=== PATIENT | female | born 1975 | race African-American/Black ===

== ENCOUNTER 2017-12-24 08:52 | Outpatient (RCR) | payer OTHER ==
[~2017-12-24 08:52] MED LIST: AUGMENTIN 875 M1 TAB PO; LORTAB 5/500 501 TAB PO; MOTRIN800 MG PO; NAPROSYN500 MG PO; NO HOME MEDICATIONS; ULTRAM50 MG PO; [UNRECOGNIZED DRUG - CODE] PO
[2018-02-22] MEDS ORDERED: CEPHALEXIN500 M1 PO (22:30)
[2018-02-22] MEDS ORDERED: NAPROXEN 3375 MG/TAB PO (22:30)
[2018-02-23] MEDS ORDERED: PREDNISONE20 MG PO (18:15)
== END 2018-03-08 09:47 | disposition home or self-care (01) ==
LOC: WSOH 08:52
DX: S51.812A Laceration without foreign body of left forearm, initial encounter (principal); W26.8XXA Contact with other sharp object(s), not elsewhere classified, initial encounter; Y99.0 Civilian activity done for income or pay; Z23 Encounter for immunization

== ENCOUNTER 2018-02-22 22:01 | Emergency (ER) | payer BC ==
[~2018-02-22] VITALS: Ht 175.3 cm; Wt 106.8 kg
[2018-02-22 22:03] VITALS: BP 174/94; TEMP 97
[2018-02-22] MEDS ORDERED: CEPHALEXIN500 M1 PO (22:30)
[2018-02-22] MEDS ORDERED: NAPROXEN 3375 MG/TAB PO (22:30)
[2018-02-22 23:00] VITALS: PULSE 67
[2018-02-23] MEDS ORDERED: PREDNISONE20 MG PO (18:15)
== END 2018-02-22 23:00 | disposition home or self-care (01) ==
LOC: COL.ER 22:01
DX: M79.89 Other specified soft tissue disorders (principal)

== ENCOUNTER 2018-02-23 16:27 | Emergency (ER) | payer BC ==
[~2018-02-23] VITALS: Ht 175.3 cm; Wt 109.1 kg
[~2018-02-23 16:27] MED LIST changes: +CEPHALEXIN500 M1 PO; +NAPROXEN 3375 MG/TAB PO
[2018-02-23 16:41] VITALS: TEMP 99.2
[2018-02-23 17:15] LABS: BASO % 0.2 % (0.0-2.0); EOS # 0.1 (0.0-0.7); EOS % 1.2 % (0-4.0); GRAN # 3.7 (1.4-6.5); GRAN % 62.2 % (42.2-75.2); LYMPH # 1.7 (1.2-3.4); LYMPH % 28.1 % (20.0-51.0); MEAN CELL VOLUME 90 fl (80.0-100.0); MEAN CORPUSCULAR HGB CONC 34 g/dl (33.0-37.0); MEAN PLATELET VOLUME 10.2 fl (7.4-10.4); MONO # 0.5 (0.1-0.6); PLATELET COUNT 259 K/mm3 (130-400); RED BLOOD COUNT 3.93 M/mm3 (4.10-5.30); REDCELL DISTRIBUTION WIDTH-CV 12.8 % (11.5-14.5)
[2018-02-23 17:18] LABS: HEMATOCRIT 35.2 % (37.0-47.0); HEMOGLOBIN 11.9 g/dl (12.5-16.0); MEAN CORPUSCULAR HEMOGLOBIN 30 pg (27.0-31.0)
[2018-02-23 17:29] LABS: CALCIUM 8.8 mg/dL (8.4-10.2); CREATININE, serum 0.75 mg/dL (0.52-1.25); POTASSIUM 3.8 mmol/L (3.4-5.0); URIC ACID 3.3 mg/dL (2.5-6.2)
[2018-02-23 17:35] LABS: ERYTHROCYTE SEDIMENTATION RATE 9 mm/hr (0-20)
[2018-02-23] MEDS ORDERED: PREDNISONE20 MG PO (18:15)
[2018-02-23 18:53] VITALS: BP 168/90; PULSE 77
== END 2018-02-23 18:56 | disposition home or self-care (01) ==
LOC: COL.ER 16:27
PROVIDERS: Emergency Medicine
DX: T78.40XA Allergy, unspecified, initial encounter (principal); L50.9 Urticaria, unspecified; Z90.710 Acquired absence of both cervix and uterus
CPT/HCPCS: J7512

== ENCOUNTER 2019-08-04 14:43 | Outpatient (RCR) | payer OTHER ==
[~2019-08-04 14:43] MED LIST changes: +PREDNISONE20 MG PO
== END 2019-10-14 | disposition home or self-care (01) ==
LOC: WSOH
DX: S66.011A Strain of long flexor muscle, fascia and tendon of right thumb at wrist and hand level, initial encounter (principal); M70.80 Other soft tissue disorders related to use, overuse and pressure of unspecified site; M25.531 Pain in right wrist; Y92.59 Other trade areas as the place of occurrence of the external cause; X50.3XXA Overexertion from repetitive movements, initial encounter; Y99.0 Civilian activity done for income or pay; I10 Essential (primary) hypertension; Z90.710 Acquired absence of both cervix and uterus; Z90.49 Acquired absence of other specified parts of digestive tract
CPT/HCPCS: 24774; L1810

== ENCOUNTER 2022-06-05 07:08 | Emergency (ER) | payer BC ==
[~2022-06-05] VITALS: Ht 175.3 cm; Wt 104.5 kg
[2022-06-05 07:15] VITALS: TEMP 99.5
[2022-06-05 08:04] LABS: ALANINE AMINOTRANSFERASE 19 U/L (0-55); ALKALINE PHOSPHATASE 88 U/L (40-150); ANION GAP 12 mmol/L (7-16); AST,SGOT 20 U/L (5-34); BILIRUBIN,TOTAL 0.7 mg/dL (0.2-1.2); BLOOD UREA NITROGEN 7 mg/dL (7-19); CARBON DIOXIDE 21 mmol/L (22-29); CHLORIDE 106 mmol/L (98-107); CREATININE, serum 0.85 mg/dL (0.57-1.11); GLUCOSE 97 mg/dL (70-99); POTASSIUM 3.3 mmol/L (3.5-4.5); SODIUM 139 mmol/L (136-145); TOTAL PROTEIN 7.7 gm/dL (6.2-8.1)
[2022-06-05 08:10] LABS: BASO # 0.1 K/mm3 (0.0-0.2); BASO % 0.7 % (0.0-2.0); EOS # 0.2 K/mm3 (0.0-0.7); EOS % 2.1 % (0.0-4.0); GRAN # 3.6 K/mm3 (1.4-6.5); GRAN % 48.1 % (42.2-75.2); HEMATOCRIT 38.8 % (37.0-47.0); HEMOGLOBIN 12.7 g/dl (12.5-16.0); LYMPH % 40.1 % (20.0-51.0); MEAN CELL VOLUME 91 fl (80.0-100.0); MEAN CORPUSCULAR HEMOGLOBIN 30 pg (27-31); MEAN CORPUSCULAR HGB CONC 33 g/dl (33.0-37.0); MEAN PLATELET VOLUME 10.5 fl (7.4-10.4); MONO # 0.6 K/mm3 (0.1-0.6); MONO % 8.5 % (1.7-9.3); RED BLOOD COUNT 4.26 M/mm3 (4.10-5.30); REDCELL DISTRIBUTION WIDTH-CV 13.6 % (11.5-14.5)
[2022-06-05 08:13] LABS: TROPONIN-I < 0.010 ng/mL (0.00-0.033)
[2022-06-05 08:28] LABS: PLATELET COUNT 276 K/mm3 (130-400)
[2022-06-05 09:50] VITALS: BP 155/103; PULSE 71
== END 2022-06-05 09:55 | disposition home or self-care (01) ==
LOC: COL.ER 07:08
PROVIDERS: Emergency Medicine
DX: R07.89 Other chest pain (principal); E87.6 Hypokalemia; R79.1 Abnormal coagulation profile; Z20.822 Contact with and (suspected) exposure to COVID-19
CPT/HCPCS: Q9967